=== PATIENT | female | born 1945 | race Caucasian/White ===

== ENCOUNTER → 2017-10-16 | Outpatient (CLI) | payer MEDICARE, OTHER | END | disposition home or self-care (01) | LOC: US 12:03 | DX: N63.10 Unspecified lump in the right breast, unspecified quadrant (principal) | CPT/HCPCS: 76942; 77065; C1713 ==

== ENCOUNTER 2017-11-05 09:41 | Observation (INO) | payer MEDICARE, OTHER ==
[2017-11-05] MEDS: LIDOCAINE WITH 8.4% SOD BICARB 3 ML DISP.SYRIN. INJ ×2 (09:30→10:45)
[~2017-11-05 09:41] MED LIST: HYDROmorphone 2 MG/ML VIAL IV; LIDOCAINE 1% PF 2 ML VIAL. ID; MORPHINE SULFATE 4 MG/ML DISP.SYRIN. IV; ONDANSETRON PF 4 MG/2 ML VIAL. IV; PROCHLORPERAZINE 10 MG/2 ML VIAL. IV; fentaNYL PF VIAL 100 MCG/2 ML VIAL IV
[2017-11-05] MEDS: IV RINGERS,LACTATED 1000ML 1,000 ML IV (10:28)
[2017-11-05] MEDS ORDERED: ONDANSETRON PF 4 MG/2 ML VIAL. (10:59)
[2017-11-05] MEDS ORDERED: PROPOFOL 20 ML IV (10:59)
[2017-11-05] MEDS ORDERED: DEXAMETHASONE SOD PHOS 20 MG/5 ML VIAL. (10:59)
[2017-11-05] MEDS ORDERED: SEVOFLURANE 61 TO 120 MINUTES. IH (10:59)
[2017-11-05] MEDS ORDERED: fentaNYL PF VIAL 100 MCG/2 ML VIAL (11:03)
[2017-11-05] MEDS ORDERED: ISOSULFAN BLUE 50 MG/5 ML VIAL. SQ (11:08)
[2017-11-05] MEDS: BUPIVACAINE-EPI 0.25%-1:200000 50 ML VIAL. (12:50)
[2017-11-05] MEDS ORDERED: KETOROLAC 30 MG/ML INJ FOR OR. INJ (13:09)
[2017-11-05] MEDS: BUPIVACAINE-EPI 0.25%-1:200000 50 ML VIAL. IJ (13:45)
[2017-11-05] MEDS: IV 1/2 NORMAL SALINE 1,000 ML IV (14:17)
[2017-11-05] MEDS ORDERED: ONDANSETRON PF 4 MG/2 ML VIAL. IV (14:30)
[2017-11-05] MEDS ORDERED: MORPHINE SULFATE 4 MG/ML DISP.SYRIN. IV ×3 (14:30→14:45)
[2017-11-05] MEDS ORDERED: 0.9 % SODIUM CHLORIDE 10 ML DISP.SYRIN. IV (14:30)
[2017-11-05] MEDS: LISINOPRIL 20 MG TABLET PO (16:57)
[2017-11-05] MEDS: CITALOPRAM 20 MG TABLET. PO (19:57)
[2017-11-05] MEDS: HYDROcodone/APAP 5/325MG 1 TAB TABLET PO (19:58)
[2017-11-06] MEDS: IV 1/2 NORMAL SALINE 1,000 ML IV (03:37)
[2017-11-06] MEDS: LISINOPRIL 20 MG TABLET PO (09:13)
[2017-11-06] MEDS: HYDROcodone/APAP 5/325MG 1 TAB TABLET PO (09:14)
== END 2017-11-06 13:00 | disposition home or self-care (01) ==
LOC: SURG 09:41 → 4 NORTH 14:17
DX: C50.911 Malignant neoplasm of unspecified site of right female breast (principal); Z90.11 Acquired absence of right breast and nipple
CPT/HCPCS: 19281; 38792; 76098; 96374; A9541; G0378; G0379; J0690; J1100; J1885; J2405; J2704; J3010; Q9968

== ENCOUNTER → 2018-01-27 | Outpatient (CLI) | payer MEDICARE, OTHER | END | disposition home or self-care (01) | LOC: KCIC DEXA 12:56 | DX: Z13.820 Encounter for screening for osteoporosis (principal); M85.88 Other specified disorders of bone density and structure, other site; Z78.0 Asymptomatic menopausal state; Z85.3 Personal history of malignant neoplasm of breast | CPT/HCPCS: 77080 ==

== ENCOUNTER → 2018-09-04 | Outpatient (CLI) | payer MEDICARE, OTHER ==
[2017-11-06 11:00] VITALS: BP 125/69
[~2018-09-04] MED LIST changes: +ANAS1TAB47 PO; +ASPI-630 PO; +CALC-98 PO; +CITA20TA9 PO; +DENO60DI SQ; +HYDR-2761 PO; -HYDROmorphone 2 MG/ML VIAL IV; -LIDOCAINE 1% PF 2 ML VIAL. ID; +LISI-334 PO; -MORPHINE SULFATE 4 MG/ML DISP.SYRIN. IV; -ONDANSETRON PF 4 MG/2 ML VIAL. IV; -PROCHLORPERAZINE 10 MG/2 ML VIAL. IV; -fentaNYL PF VIAL 100 MCG/2 ML VIAL IV
--- NOTE | 2018-09-04 17:31 | RAD ---
AP view of the pelvis and two-view study left hip Clinical indications: Left-sided hip pain. Patient fell in July 2018. FINDINGS: No acute fracture or dislocation or osteolytic process is seen. No significant arthritic change of the left hip is seen. There is mild degenerative spurring of the right femoral head with mild joint space narrowing. There is mild spurring and subchondral sclerosis of the symphysis pubis. IMPRESSION: No significant osseous abnormality of the left hip. 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 Electronically signed by: Sanchez Beltran MD (09/04/2018 5:27 PM) [facility]
== END | disposition home or self-care (01) ==
LOC: RAD 15:39
PROVIDERS: ATTEND Nurse Practitioner Adult Health
DX: M76.892 Other specified enthesopathies of left lower limb, excluding foot (principal); M76.891 Other specified enthesopathies of right lower limb, excluding foot; M16.11 Unilateral primary osteoarthritis, right hip
CPT/HCPCS: 73502